=== PATIENT | male | born 1995 | race Caucasian/White ===

== ENCOUNTER 2016-08-11 15:03 | Emergency (ER) | payer BC, MEDICAID ==
[~2016-08-11] VITALS: Ht 167.6 cm; Wt 70.3 kg
[2016-08-11 15:10] VITALS: BP 132/62; PULSE 67; RESP 18; TEMP 97.8; O2SAT 96; Ht 167.6 cm; Wt 70.3 kg
--- NOTE | 2016-08-11 15:20 | ERPDOC ---
Departure Disposition Decision Date: Aug 11, 2016 Disposition Decision Time: 15:28 Disposition: 01 DISCHARGED HOME, SELF-CARE Impression Impression Impression: Primary Impression: Spider bite wound Encounter type: initial encounter Injury intent: accidental or unintentional Qualified Codes: T63.301A - Toxic effect of unspecified spider venom, accidental (unintentional), initial encounter Severity: Moderate Condition: Stable Seen By: Mid-level only Referrals: ZEFERINO DENG II, MD (PCP) Patient Instructions: Brown Recluse Spider Bite (ED) Problems/Meds/Labs Reviewed?: Yes Medications reviewed and manag: Yes Additional Instructions: Take bactrim DS twice daily to prevent infection. Follow treatment plan. If wound is enlarging or worsening symptoms (see discharge instructions) follow with your PCP or return to ED. Follow up care ordered?: Yes Mental Status: Alert, Oriented HPI - Skin General General Chief Complaint: Skin Rash/Abscess Stated Complaint: POSS SPIDER BITE ON Time Seen by Provider: 15:18 Source: patient HPI - Skin General Initial Comments 21 YO M presents to ED with concern for possible spider bite to right thigh. Patient notice bump on thigh that turned purplish over weekend. Initially hurt but does not now. Center of lesion turned dark. Patient says that he cleaned out "stuff from center of lesion". Patient denies fever, chills, nausea or vomiting. Pain Scale: Now: 0/10 Location: extremities Associated Symptoms: DENIES: fever, nasal congestion, petechiae, rash, tingling Allergies: Coded Allergies: No Known Allergies (Unverified , 08/11/16) Past History Past Medical History Pt denies signifigant PMH Surgical History Denies Surgeries Family History Family PMH: FOUND: other (noncontributory) Vaccines Hx Influenza Vaccination: Yes Social History Current Occupational Status: student Review of Systems Constitutional Constitutional: DENIES: chills, dizziness, fever, weakness Eyes General: DENIES: erythema, exudate Lids/Accessories: DENIES: erythema, swelling ENMT Ears: DENIES: pain Hearing: DENIES: hearing loss Sinuses: DENIES: congestion, rhinorrhea Mouth/Throat: DENIES: sore throat Cardiovascular Cardiac: DENIES: chest pain, murmur Rhythm/Rate: DENIES: palpitations Pulmonary Respiratory: DENIES: cough, dyspnea GI Upper Abdomen: DENIES: nausea, pain, vomiting Lower Abdomen: DENIES: diarrhea, pain General: DENIES: dysuria, pain Musculoskeletal General: DENIES: joint pain, pain, tenderness Integumentary Skin: lesion, see HPI, DENIES: color change, itching, rash Neurological General: DENIES: ataxia, change in strength, numbness, paralysis/paresis, weakness Psychiatric Psychiatric: DENIES: anxiety, depression, nervousness Physical Exam General General Nourishment: well nourished, well developed, no acute distress General Body Habitus: well groomed Vitals and Pain Weight: Kilograms: Height (feet): Height (inches): Triage Pain Scale: Eyes (brief) Eyes Brief: found: EOMI ENMT (brief) ENMT Brief: NOT FOUND: nasal exudate, nasal swelling Neck (brief) Neck: FOUND: trachea midline Respiratory (brief) Respiratory: FOUND: clear all belcher, equal bilaterally, symmetrical Musculoskeletal (brief) Musculoskeletal Brief: NOT FOUND: deformity, loss of motion Integumentary General: FOUND: dry, warm Color: FOUND: pink Comments Approx. 3x3 cm area purplish-red tissue with approx. [id number] central area of erosion of tissue, No increased warm to tissue or drainage appreciated. No TTP. Neurologic (brief) Neurological Brief: FOUND: motor-no gross deficits, sensory-no gross deficits Psychiatric (brief) Psychiatric Brief: FOUND: alert, normal affect, oriented Differential Diagnoses Considering: Abscess, Bite, Cellulitis, Insect Sting Progress Progress Progress I discussed exam findings with patient and that exam findings were consistent with spider bite. I will start patient on bactrim DS for infection prophylaxis. I discussed close follow up with PCP if continued loss of tissue. Patient verbalized understanding of treatment plan, follow up with PCP nd return precautions. LUDWIN WHITE APRN Aug 11, 2016 15:20
[2016-08-11] MEDS ORDERED: SULF1TAB42 PO (15:29)
[2016-08-11] MEDS ORDERED: NO KNOWN MEDS (15:30)
== END 2016-08-11 15:35 | disposition home or self-care (01) ==
LOC: ED 15:03
DX: T63.301A Toxic effect of unspecified spider venom, accidental (unintentional), initial encounter (principal); Y92.9 Unspecified place or not applicable